=== PATIENT | male | born 1965 | race Caucasian/White ===

== ENCOUNTER 2019-01-23 16:40 | Emergency (ER) | payer SELFPAY ==
[~2019-01-23] VITALS: Wt 72.0 kg
[2019-01-23 16:43] VITALS: BP 119/73; PULSE 82; RESP 20
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
== END 2019-01-23 17:41 | disposition home or self-care (01) ==
LOC: E/R 16:40
DX: S80.11XA Contusion of right lower leg, initial encounter (principal); V03.10XA Pedestrian on foot injured in collision with car, pick-up truck or van in traffic accident, initial encounter
CPT/HCPCS: 93971